=== PATIENT | female | born 1975 | race Caucasian/White ===

== ENCOUNTER → 2019-08-04 11:52 | Outpatient (CLI) | payer OTHER, SELFPAY ==
--- NOTE | 2019-08-04 12:29 | DI.MG.S_ITS ---
Patient Name: KATERINA FLANNERY date: 1975 Sex: F Attending Physician: ALISIA Indications: Date: 08/04/2019 12:18 At the request of: PRIYANKA CRUMP Procedure: MM screening mammo BI BILATERAL DIGITAL SCREENING MAMMOGRAM 3D/2D WITH CAD: 08/04/2019 CLINICAL: Routine screening. Comparison is made to exam dated: 02/12/2017 mammogram - [facility]. The tissue of both breasts is heterogeneously dense. This may lower the sensitivity of mammography. Current study was also evaluated with a Computer Aided Detection (CAD) system. No significant masses, calcifications, or other findings are seen in either breast. There has been no significant interval change. IMPRESSION: NEGATIVE There is no mammographic evidence of malignancy. A 1 year screening mammogram is recommended. This exam was interpreted at Station ID: [id number]. NOTE: For mammograms, a report in lay terms will be sent to the patient. Approximately 15% of breast malignancies will not be visualized mammographically. In the management of a palpable breast mass, a negative mammogram must not discourage biopsy of a clinically suspicious lesion. Electronically Signed By: Maverick vargas/penrad:08/04/2019 18:37:20 letter sent: Normal Exam ACR BI-RADS Category 1: Negative 3341F
== END ==
PROVIDERS: PCP Nurse Practitioner Family; Visit Provider Hospitalist
DX: Z12.31 Encounter for screening mammogram for malignant neoplasm of breast (principal)
CPT/HCPCS: 77063; 77067

== ENCOUNTER → 2019-08-20 12:46 | Outpatient (CLI) | payer OTHER, SELFPAY ==
--- NOTE | 2019-08-20 | DI.MRI.S_ITS ---
PROCEDURE: MR KNEE LT WO CON INDICATIONS: Unspecified internal derangement of left knee TECHNIQUE: Noncontrast sagittal PD fast spin echo and T2 fast spin echo with fat saturation, sagittal 3-D FLASH with fat saturation; coronal T1 spin echo and PD fast spin echo with fat saturation, and axial PD fast spin echo with fat saturation through the knee. COMPARISON: [facility], CR, XR KNEE ARTHRITIC SERIES LT, 08/08/2019, 8:35. FINDINGS: Image quality: Excellent. Menisci: Medial meniscus intact. Lateral meniscus intact. Cruciate ligaments: Anterior cruciate ligament appears intact. Posterior cruciate ligament appears intact. Medial structures: The medial collateral ligament appears intact. Semimembranosus tendon appears intact. Visualized portions of the pes anserinus tendons appear normal. No abnormal bursal fluid. Lateral structures: The lateral collateral ligament intact. Biceps femoris tendon appears intact. Popliteus tendon grossly unremarkable. Iliotibial band appears intact. Anterior structures: Quadriceps tendon intact. Medial and lateral patellofemoral ligaments intact. Mild proximal patellar tendinopathy. Hoffa's fat pad unremarkable. Bones and cartilage: No focal marrow contusion or discrete low signal fracture line. Within the medial compartment, there is intrasubstance signal change measured approximately 4 mm overall, and small near full-thickness cartilage defect involving the weightbearing medial femoral condyle. There is underlying subchondral cystic change and marrow edema. No definite in situ fragment. Within the lateral compartment, no focal articular cartilage defect Within the patellofemoral compartment, fissuring of the central trochlear cartilage. The patellar cartilage appears intact Joint space: No joint effusion. No Cruz's cyst. No specific evidence of intra-articular loose body. Multiloculated presumed ganglion cyst, seen at the origin of the lateral gastrocnemius muscle. IMPRESSION: Focal signal change with underlying subchondral marrow edema and T2 hyperintensity involving the weightbearing medial femoral cartilage suggestive of small osteochondral defect. Multiloculated ganglion cyst at the origin the lateral gastrocnemius. Dictated by: Jim Haynes M.D. on 08/22/2019 at 12:07 Approved by: Jim Haynes M.D. on 08/22/2019 at 12:18
== END ==
PROVIDERS: PCP Nurse Practitioner Family; Referring Provider Orthopaedic Surgery; Visit Provider Orthopaedic Surgery
DX: M23.92 Unspecified internal derangement of left knee (principal); M67.462 Ganglion, left knee
CPT/HCPCS: 73721

== ENCOUNTER → 2020-08-15 10:49 | Outpatient (CLI) | payer OTHER, SELFPAY ==
--- NOTE | 2020-08-15 | DI.MG.S_ITS ---
BILATERAL DIGITAL SCREENING MAMMOGRAM 3D/2D WITH CAD: 08/15/2020 CLINICAL: Routine screening. Comparison is made to exams dated: 08/04/2019 mammogram - [facility] and 02/12/2017 mammogram - [facility]. The tissue of both breasts is heterogeneously dense. This may lower the sensitivity of mammography. Current study was also evaluated with a Computer Aided Detection (CAD) system. No significant masses, calcifications, or other findings are seen in either breast. There has been no significant interval change. IMPRESSION: NEGATIVE There is no mammographic evidence of malignancy. A 1 year screening mammogram is recommended. This exam was interpreted at Station ID: [id number]. NOTE: For mammograms, a report in lay terms will be sent to the patient. Approximately 15% of breast malignancies will not be visualized mammographically. In the management of a palpable breast mass, a negative mammogram must not discourage biopsy of a clinically suspicious lesion. Electronically Signed By: Srikanth das/joe:08/15/2020 12:23:46 letter sent: Normal Exam ACR BI-RADS Category 1: Negative 3341F
== END ==
PROVIDERS: PCP Nurse Practitioner Family; Referring Provider Nurse Practitioner Family; Visit Provider Nurse Practitioner Family
DX: Z12.31 Encounter for screening mammogram for malignant neoplasm of breast (principal)
CPT/HCPCS: 77063; 77067

== ENCOUNTER → 2020-10-19 11:14 | Outpatient (CLI) | payer OTHER, SELFPAY ==
[2020-10-19] MEDS: COVID-19 VACC #1, MRNA(MOD) 100 MCG/0.5 ML VIAL IM (11:28)
== END ==
PROVIDERS: PCP Nurse Practitioner Family; Visit Provider Internal Medicine
DX: Z23 Encounter for immunization (principal)
CPT/HCPCS: 0011A; 91301

== ENCOUNTER 2022-07-17 11:17 | Emergency (ER) | payer OTHER, SELFPAY ==
--- NOTE | 2022-07-17 11:37 | DI.RAD.S_ITS ---
PROCEDURE: XR CHEST 1V INDICATIONS: chest pain TECHNIQUE: One view of the chest was acquired. COMPARISON: None. FINDINGS: Surgical changes and devices: None. Lungs and pleura: Lungs are clear. No pleural effusions or pneumothorax. Mediastinum: Mediastinal contours appear normal. Heart size is normal. Bones and chest wall: No suspicious bony lesions. Overlying soft tissues appear unremarkable. IMPRESSION: No acute process. Dictated by: Kuldip Graff M.D. on 07/17/2022 at 11:48 Approved by: Kuldip Graff M.D. on 07/17/2022 at 11:48
[2022-07-17 11:40] VITALS: BP 124/68; PULSE 81; RESP 30; TEMP 36.7; O2SAT 98; BMI 25.4
[2022-07-17 12:08] LABS: Add Manual Diff / Slide Review NO; Basophils Absolute Auto 100 /uL (0-100); Basophils Percent Auto 0.7 % (0-2); Eosinophils Absolute Auto 200 /uL (0-450); Hematocrit 36.3 % (36-46); Lymphocytes Absolute Auto 1500 /uL (1100-4500); Lymphocytes Percent Auto 18.8 % (25-40); Mean Corpuscular HGB Conc 33.1 % (30-36); Mean Corpuscular Hemoglobin 30.9 PG (26-34); Mean Corpuscular Volume 93.2 fL (80-100); Monocytes Absolute Auto 400 /uL (0-900); Monocytes Percent Auto 4.9 % (3-14); Neutrophils Absolute Auto 5700 /uL (1500-7000); Neutrophils Percent Auto 73.6 % (50-75); Platelet Count 249 X10^3/uL (150-400); Red Blood Cell Count 3.89 X10^6/uL (4.0-5.2); Red Cell Distribution Width 13.3 % (11.6-14.8); White Blood Cell Count 7.8 X10^3/uL (4.5-11.0)
[2022-07-17 12:15] LABS: INR 1.2 (0.9-1.3); Prothrombin Time 13.5 SECONDS (10.1-12.7)
[2022-07-17 12:21] LABS: Alanine Aminotransferase 16 IU/L (<35); Alkaline Phosphatase 48 U/L (38-126); Aspartate Aminotransferase 24 IU/L (14-36); BUN Creatinine Ratio 20.7 (6-22); Bilirubin Total 0.6 mg/dL (0.2-1.3); Blood Urea Nitrogen 12 mg/dL (7-17); Calcium 10.2 mg/dL (8.4-10.2); Carbon Dioxide 25 mmol/L (22-32); Chloride 106 mmol/L (98-107); Creatine Kinase 52 U/L (30-135); Estimated Glomerular Filt Rate > 60 mL/min (>60); Glucose 94 mg/dL (70-100); HEMOLYSIS < 15 (0-50); Lipase 107 U/L (23-300); Magnesium 1.7 mg/dL (1.6-2.3); Sodium 140 mmol/L (137-145)
[2022-07-17 12:24] LABS: PTT Partial Thromboplastin Tim 33 SECONDS (26-36)
[2022-07-17 12:32] LABS: Troponin I < 0.012 ng/mL (0.01-0.034)
--- NOTE | 2022-07-17 12:35 | ED.CHESTPAIN ---
HPI - Chest Pain <Bryanna Tee, [facility] - Last Filed: 07/17/22 15:40> General Chief Complaint: Chest Pain Stated Complaint: chest pain Time Seen by Provider: 07/17/22 12:09 Source: patient Mode of arrival: EMS History of Present Illness HPI narrative: This is a 46-year-old female who presents to the emergency department via EMS with acute onset of what patient thought was heartburn under her left ribs at 09:00 this morning. She states it radiates to right upper quadrant and right shoulder, her substernal chest pressure and pain and is associated with shortness of breath. She denies nausea, states that it became heavy and she felt poorly at that time. She felt lightheaded, states she has history of asthma some anxiety and GERD, she took Prilosec and 09:00 o'clock, her symptoms somewhat improved but then she another way pain and similar symptoms. She feels short of breath. She endorses pelvic pain and pressure, denies any urinary complaint, denies any flank pain Related Data Home Medications Medication Instructions Recorded Confirmed fluticasone propionate 50 1 spray intranasal DAILY 11/16/19 05/28/21 mcg/actuation nasal spray,suspension (Flonase Allergy Relief) Previous Rx's Medication Instructions Recorded albuterol sulfate 90 mcg/actuation 2 puff inhalation Q6H PRN 05/28/21 aerosol inhaler shortness of breath or wheezing #18 grams Advair Diskus 250 mcg-50 mcg/dose 1 inh inhalation DAILY #14 ea 05/29/21 powder for inhalation (fluticasone propion-salmeterol) cephalexin 500 mg capsule 500 mg PO TID 5 days #15 caps 07/17/22 hydrocodone 5 mg-acetaminophen 325 1 tab PO Q8H PRN pain #10 tabs 07/17/22 mg tablet metronidazole 0.75 % topical gel 1 applic topical BEDTIME #45 grams 07/17/22 metronidazole 500 mg tablet 500 mg PO BID 7 days #14 tabs 07/17/22 ondansetron 4 mg disintegrating 4 mg PO Q8H PRN nausea and 07/17/22 tablet vomiting #10 tabs polyethylene glycol 3350 17 17 g PO DAILY PRN constipation 07/17/22 gram/dose oral powder (Miralax) #238 grams Allergies Allergy/AdvReac Type Severity Reaction Status Date / Time No Known Drug Allergies Allergy Verified 07/17/22 11:47 Review of Systems <ROSSY Barry - Last Filed: 07/17/22 15:40> Review of Systems ROS Unobtainable: All systems reviewed & are unremarkable except as noted in HPI and below Patient History <ROSSY Barry - Last Filed: 07/17/22 15:40> Medical History Allergies (~1979) Encounter for wellness examination History of COVID-19 (01/2021) Surgical History H/O section Family History Father Coronary artery disease involving coronary bypass graft with angina pectoris with documented spasm Grandfather Heart disease Grandmother Heart disease Social History marital status: pets and animals: Yes education level: college occupational status: unemployed bisi/yarsanism: Confucianist seatbelt use: always helmet use: Yes water heater temp set < 120 deg: Yes working smoke detector in home: Yes fire extinguisher in home: Yes carbon monox detector in home: Yes firearms in home: Yes firearms unloaded and locked: Yes do you feel safe at home: Yes Smoking Status: Never smoker second hand exposure: No alcohol intake: current substance use type: does not use during the past year weight has: other well-balanced diet: daily or most days daily servings fruits/ve or more times/day caffeine: Yes (1-2 DRINKS PER DAY, RARE ON SODA) eating out: 1-3 times/week Type(s) of exercise: walking and swimming frequency: 3-4 times per week duration: 30-45 minutes/day additional social history: Beach body. No to disabilities. Smoking Status: Never smoker alcohol intake frequency: holidays/special occasions only Substance Use Type: does not use Exam <ROSSY Barry - Last Filed: 07/17/22 15:40> Narrative Exam Narrative: Reviewed vitals signs and nursing notes. General: cooperative, comfortable, in no acute distress, well groomed HEENT: symmetrical facial expressions, moist mucous membranes Cardiovascular: Tachycardic rate and regular rhythm, no peripheral edema, warm extremities Respiratory: normal effort, tachypneic, clear breath sounds throughout without wheezing, without stridor, or abnormal breath sounds. No retractions or tachypnea. GI: abdomen soft, tender to palpation to the right upper quadrant, nondistended, without masses, rebound tenderness or exquisite tenderness with exam. MSK: moves all extremities, neurovascularly intact, no weakness, normal tone Skin: brisk capillary refill, without pallor or erythema Neuro: normal speech and cognition, A&O x3, ambulatory, clear speech Psych: mental status is grossly normal, congruent mood, normal affect, pleasant and cooperative Initial Vital Signs Initial Vital Signs: Vital Signs Temperature 98.1 F 07/17/22 11:40 Pulse Rate 81 07/17/22 11:40 Respiratory Rate 30 H 07/17/22 11:40 Blood Pressure 124/68 07/17/22 11:40 Pulse Oximetry 98 07/17/22 11:40 Oxygen Delivery Method 07/17/22 11:40 <Teresa Dias DO - Last Filed: 07/21/22 07:19> Initial Vital Signs Initial Vital Signs: Vital Signs Temperature 98.1 F 07/17/22 11:40 Pulse Rate 81 07/17/22 11:40 Respiratory Rate 30 H 07/17/22 11:40 Blood Pressure 124/68 07/17/22 11:40 Pulse Oximetry 98 07/17/22 11:40 Oxygen Delivery Method 07/17/22 11:40 Scores <ROSSY Barry - Last Filed: 07/17/22 15:40> HEART Score Heart Score history: Slightly Suspicious Heart Score EKG: Normal Heart Score Age: < 45 years old Heart Score risk factors: No known risk factors Heart Score troponin: < or = to normal limit Heart Score Total: 0 PERC Score Age greater than or equal to 50 years: No Heart rate greater than or equal to 100 bpm: Yes Room Air O2 Sat less than 95%: No Unilateral leg swelling: No Recent trauma or surgery: No Hemoptysis: No Prior PE or DVT: No Hormone Use: No Total PERC Score: 1 <Teresa Dias DO - Last Filed: 07/21/22 07:19> HEART Score Heart Score Total: 0 PERC Score Total PERC Score: 1 Course <ROSSY Barry - Last Filed: 07/17/22 15:40> Orders Ordered: Discontinued Medications Cephalexin HCl (Cephalexin 250 Mg Capsule) 500 mg PO NOW ONE Stop: 07/17/22 14:53 Last Admin: 07/17/22 15:12 Dose: 500 mg Documented By: BRIAN Al Hydrox/Mg Hydrox/Simethicone 20 ml/ Lidocaine HCl 15 ml 0 ml PO NOW ONE Stop: 07/17/22 13:40 Last Admin: 07/17/22 14:55 Dose: 35 ml Documented By: BRIAN Diazepam (Diazepam 5 Mg Tablet) 5 mg PO NOW ONE Stop: 07/17/22 12:32 Last Admin: 07/17/22 13:01 Dose: 5 mg Documented By: BRIAN Hydromorphone HCl (Hydromorphone 0.5 Mg Inj) 0.5 mg IV NOW ONE Stop: 07/17/22 14:13 Last Admin: 07/17/22 14:44 Dose: Not Given Documented By: CAIN Metronidazole (Metronidazole 500 Mg Tablet) 500 mg PO NOW ONE Stop: 07/17/22 14:45 Last Admin: 07/17/22 15:12 Dose: 500 mg Documented By: BRIAN Pantoprazole Sodium (Pantoprazole 40 Mg Vial) 40 mg IV NOW ONE Stop: 07/17/22 12:30 Last Admin: 07/17/22 13:02 Dose: 40 mg Documented By: BRIAN Vital Signs Vital signs: Vital Signs - 8 hr 07/17/22 11:40 07/17/22 14:32 07/17/22 15:23 Temperature 98.1 F Pulse Rate 81 70 69 Respiratory Rate 30 H 18 Blood Pressure 124/68 110/69 111/60 Pulse Oximetry 98 100 98 Oxygen Delivery Method Room Air Room Air Room Air <Teresa Dias DO - Last Filed: 07/21/22 07:19> Orders Ordered: Discontinued Medications Cephalexin HCl (Cephalexin 250 Mg Capsule) 500 mg PO NOW ONE Stop: 07/17/22 14:53 Last Admin: 07/17/22 15:12 Dose: 500 mg Documented By: BRIAN Al Hydrox/Mg Hydrox/Simethicone 20 ml/ Lidocaine HCl 15 ml 0 ml PO NOW ONE Stop: 07/17/22 13:40 Last Admin: 07/17/22 14:55 Dose: 35 ml Documented By: BRIAN Diazepam (Diazepam 5 Mg Tablet) 5 mg PO NOW ONE Stop: 07/17/22 12:32 Last Admin: 07/17/22 13:01 Dose: 5 mg Documented By: BRIAN Hydromorphone HCl (Hydromorphone 0.5 Mg Inj) 0.5 mg IV NOW ONE Stop: 07/17/22 14:13 Last Admin: 07/17/22 14:44 Dose: Not Given Documented By: CAIN Metronidazole (Metronidazole 500 Mg Tablet) 500 mg PO NOW ONE Stop: 07/17/22 14:45 Last Admin: 07/17/22 15:12 Dose: 500 mg Documented By: BRIAN Pantoprazole Sodium (Pantoprazole 40 Mg Vial) 40 mg IV NOW ONE Stop: 07/17/22 12:30 Last Admin: 07/17/22 13:02 Dose: 40 mg Documented By: BRIAN Vital Signs Vital signs: Vital Signs - 8 hr 07/17/22 11:40 07/17/22 14:32 07/17/22 15:23 Temperature 98.1 F Pulse Rate 81 70 69 Respiratory Rate 30 H 18 Blood Pressure 124/68 110/69 111/60 Pulse Oximetry 98 100 98 Oxygen Delivery Method Room Air Room Air Room Air MDM - Chest Pain <ROSSY Barry - Last Filed: 07/17/22 15:40> Lab Data Result diagrams: 07/17/22 11:50 07/17/22 11:50 Labs: Lab Results 07/17/22 07/17/22 07/17/22 Range/Units 11:50 11:50 11:50 WBC 7.8 (4.5-11.0) X10^3/uL RBC 3.89 L (4.0-5.2) X10^6/uL Hgb 12.0 (12.0-16.0) g/dL Hct 36.3 (36-46) % MCV 93.2 (80-100) fL MCH 30.9 (26-34) PG MCHC 33.1 (30-36) % RDW 13.3 (11.6-14.8) % Plt Count 249 (150-400) X10^3/uL Neut % (Auto) 73.6 (50-75) % Lymph % (Auto) 18.8 L (25-40) % Edmunds % (Auto) 4.9 (3-14) % Eos % (Auto) 2.0 (2-4) % Baso % (Auto) 0.7 (0-2) % Neut # (Auto) 5700 (8835-7728) /uL Lymph # (Auto) 1500 (2605-9805) /uL Edmunds # (Auto) 400 (0-900) /uL Eos # (Auto) 200 (0-450) /uL Baso # (Auto) 100 (0-100) /uL PT 13.5 H (10.1-12.7) SECONDS INR 1.2 (0.9-1.3) APTT 33 (26-36) SECONDS D-Dimer (<500) ng/ml Sodium 140 (137-145) mmol/L Potassium 4.0 (3.4-5.1) mmol/L Chloride 106 (98-107) mmol/L Carbon Dioxide 25 (22-32) mmol/L BUN 12 (7-17) mg/dL Creatinine 0.58 (0.52-1.04) mg/dL Estimated GFR > 60 (>60) mL/min BUN/Creatinine Ratio 20.7 (6-22) Glucose 94 (70-100) mg/dL Calcium 10.2 (8.4-10.2) mg/dL Magnesium 1.7 (1.6-2.3) mg/dL Total Bilirubin 0.6 (0.2-1.3) mg/dL AST 24 (14-36) IU/L ALT 16 (<35) IU/L Alkaline Phosphatase 48 (38-126) U/L Total Creatine Kinase 52 (30-135) U/L CK-MB (CK-2) TNP CK-MB (CK-2) Rel Index TNP Troponin I < 0.012 (0.01-0.034) ng/mL NT-Pro-B Natriuret Pep (<125) pg/mL Total Protein 8.0 (6.3-8.2) g/dL Albumin 4.4 (3.5-5.0) g/dL Globulin 3.6 (1.7-4.1) g/dL Albumin/Globulin Ratio 1.2 (1.0-2.8) Lipase 107 (23-300) U/L Urine Color Urine Appearance Urine pH (4.5-8.0) Ur Specific [place] (1.000-1.035) Urine Protein (Negative) Urine Glucose (UA) (Negative) g/dL Urine Ketones (NEGATIVE) Urine Occult Blood (Negative) Urine Nitrate (Negative) Urine Bilirubin (NEGATIVE) Urine Urobilinogen (0.2) E.U./dL Ur Leukocyte Esterase (NEGATIVE) Urine RBC (0-5/HPF) Urine WBC (0-5/HPF) Ur Squamous Epith Cells (0-5/HPF) Urine Bacteria (None) Ur Culture Indicated? Urine Test (Negative) SARS-CoV-2 (PCR) (Negative) Influenza A (RT-PCR) (NEGATIVE) Influenza B (RT-PCR) (NEGATIVE) RSV (PCR) (Negative) 07/17/22 07/17/22 07/17/22 Range/Units 11:50 12:00 12:00 WBC (4.5-11.0) X10^3/uL RBC (4.0-5.2) X10^6/uL Hgb (12.0-16.0) g/dL Hct (36-46) % MCV (80-100) fL MCH (26-34) PG MCHC (30-36) % RDW (11.6-14.8) % Plt Count (150-400) X10^3/uL Neut % (Auto) (50-75) % Lymph % (Auto) (25-40) % Edmunds % (Auto) (3-14) % Eos % (Auto) (2-4) % Baso % (Auto) (0-2) % Neut # (Auto) (2504-0389) /uL Lymph # (Auto) (2595-4201) /uL Edmunds # (Auto) (0-900) /uL Eos # (Auto) (0-450) /uL Baso # (Auto) (0-100) /uL PT (10.1-12.7) SECONDS INR (0.9-1.3) APTT (26-36) SECONDS D-Dimer < 215 (<500) ng/ml Sodium (137-145) mmol/L Potassium (3.4-5.1) mmol/L Chloride (98-107) mmol/L Carbon Dioxide (22-32) mmol/L BUN (7-17) mg/dL Creatinine (0.52-1.04) mg/dL Estimated GFR (>60) mL/min BUN/Creatinine Ratio (6-22) Glucose (70-100) mg/dL Calcium (8.4-10.2) mg/dL Magnesium (1.6-2.3) mg/dL Total Bilirubin (0.2-1.3) mg/dL AST (14-36) IU/L ALT (<35) IU/L Alkaline Phosphatase (38-126) U/L Total Creatine Kinase (30-135) U/L CK-MB (CK-2) CK-MB (CK-2) Rel Index Troponin I (0.01-0.034) ng/mL NT-Pro-B Natriuret Pep (<125) pg/mL Total Protein (6.3-8.2) g/dL Albumin (3.5-5.0) g/dL Globulin (1.7-4.1) g/dL Albumin/Globulin Ratio (1.0-2.8) Lipase (23-300) U/L Urine Color Yellow Urine Appearance Clear Urine pH 7.0 (4.5-8.0) Ur Specific [place] <=1.005 (1.000-1.035) Urine Protein 2+ H (Negative) Urine Glucose (UA) Negative (Negative) g/dL Urine Ketones Negative (NEGATIVE) Urine Occult Blood 3+ H (Negative) Urine Nitrate Negative (Negative) Urine Bilirubin Negative (NEGATIVE) Urine Urobilinogen 0.2 (0.2) E.U./dL Ur Leukocyte Esterase Negative (NEGATIVE) Urine RBC 5-10/hpf H (0-5/HPF) Urine WBC 0-1/hpf (0-5/HPF) Ur Squamous Epith Cells >30 /hpf H (0-5/HPF) Urine Bacteria Many (>30) H (None) Ur Culture Indicated? Specimen cultured Urine Test Negative (Negative) SARS-CoV-2 (PCR) (Negative) Influenza A (RT-PCR) (NEGATIVE) Influenza B (RT-PCR) (NEGATIVE) RSV (PCR) (Negative) 07/17/22 07/17/22 Range/Units 13:05 13:57 WBC (4.5-11.0) X10^3/uL RBC (4.0-5.2) X10^6/uL Hgb (12.0-16.0) g/dL Hct (36-46) % MCV (80-100) fL MCH (26-34) PG MCHC (30-36) % RDW (11.6-14.8) % Plt Count (150-400) X10^3/uL Neut % (Auto) (50-75) % Lymph % (Auto) (25-40) % Edmunds % (Auto) (3-14) % Eos % (Auto) (2-4) % Baso % (Auto) (0-2) % Neut # (Auto) (8053-6158) /uL Lymph # (Auto) (2615-6326) /uL Edmunds # (Auto) (0-900) /uL Eos # (Auto) (0-450) /uL Baso # (Auto) (0-100) /uL PT (10.1-12.7) SECONDS INR (0.9-1.3) APTT (26-36) SECONDS D-Dimer (<500) ng/ml Sodium (137-145) mmol/L Potassium (3.4-5.1) mmol/L Chloride (98-107) mmol/L Carbon Dioxide (22-32) mmol/L BUN (7-17) mg/dL Creatinine (0.52-1.04) mg/dL Estimated GFR (>60) mL/min BUN/Creatinine Ratio (6-22) Glucose (70-100) mg/dL Calcium (8.4-10.2) mg/dL Magnesium (1.6-2.3) mg/dL Total Bilirubin (0.2-1.3) mg/dL AST (14-36) IU/L ALT (<35) IU/L Alkaline Phosphatase (38-126) U/L Total Creatine Kinase (30-135) U/L CK-MB (CK-2) CK-MB (CK-2) Rel Index Troponin I < 0.012 (0.01-0.034) ng/mL NT-Pro-B Natriuret Pep 46 (<125) pg/mL Total Protein (6.3-8.2) g/dL Albumin (3.5-5.0) g/dL Globulin (1.7-4.1) g/dL Albumin/Globulin Ratio (1.0-2.8) Lipase (23-300) U/L Urine Color Urine Appearance Urine pH (4.5-8.0) Ur Specific [place] (1.000-1.035) Urine Protein (Negative) Urine Glucose (UA) (Negative) g/dL Urine Ketones (NEGATIVE) Urine Occult Blood (Negative) Urine Nitrate (Negative) Urine Bilirubin (NEGATIVE) Urine Urobilinogen (0.2) E.U./dL Ur Leukocyte Esterase (NEGATIVE) Urine RBC (0-5/HPF) Urine WBC (0-5/HPF) Ur Squamous Epith Cells (0-5/HPF) Urine Bacteria (None) Ur Culture Indicated? Urine Test (Negative) SARS-CoV-2 (PCR) Negative (Negative) Influenza A (RT-PCR) Flu a negative (NEGATIVE) Influenza B (RT-PCR) Flu b negative (NEGATIVE) RSV (PCR) Negative (Negative) Imaging Data Chest x-ray: Radiologist's Impression: PROCEDURE:? XR CHEST 1V ? INDICATIONS:? chest pain ? TECHNIQUE:? One view of the chest was acquired.? ? COMPARISON:? None. ? FINDINGS:? ? Surgical changes and devices:? None.? ? Lungs and pleura:? Lungs are clear.? No pleural effusions or pneumothorax.? ? Mediastinum:? Mediastinal contours appear normal.? Heart size is normal.? ? Bones and chest wall:? No suspicious bony lesions.? Overlying soft tissues appear unremarkable.? ? IMPRESSION:? No acute process. ? ? Dictated by: Kuldip Graff M.D. on 07/17/2022 at 11:48 ? ? Approved by: Kuldip Graff M.D. on 07/17/2022 at 11:48 ? CT scan - abdomen/pelvis: Radiologist's Impression: PROCEDURE:? CT ABDOMEN PELVIS W CON ? INDICATIONS:? nephrolithiasis? chest pain/upper abd pain, tender rt flank ? TECHNIQUE:? After the administration of intravenous contrast, axial sections acquired from the lung bases to the pubic symphysis.? Coronal and sagittal reformats were performed.? For radiation dose reduction, the following was used:? automated exposure control, adjustment of mA and/or kV according to patient size.? ? COMPARISON:? None. ? FINDINGS:? Image quality:? Excellent.? ? Lung bases:? Unremarkable. Heart:? No significant findings. ? ABDOMEN: Liver:? Unremarkable.? ? Gallbladder:? Unremarkable.? ? Biliary ducts:? Unremarkable.? ? Pancreas:? Unremarkable.? ? Spleen:? Unremarkable.? ? Adrenal Glands:? Unremarkable.? ? Kidneys and Ureters:? Unremarkable.? ? ? Stomach and Bowel:? Stomach, small bowel loops, and colon are unremarkable.? Normal appendix. Peritoneum:? No abnormal intraperitoneal fluid.? No free air.? ? Ventral Wall: ? No hernias.? Abdominal Nodes:? No retroperitoneal or mesenteric adenopathy by size criteria.? Vessels:? Aorta and inferior vena cava are normal in size.? ? PELVIS: Pelvic Organs:? There is a septated cystic focus with calcifications involving the left ovary measuring roughly 38 mm diameter..? ? Bladder:? Unremarkable.? ? Pelvic Nodes: No enlarged lymph nodes.? Miscellaneous: No hernias are seen. ? ? ? Bones:? Unremarkable.? IMPRESSION:? 1. No acute process. 2. If there is clinical evidence for nephrolithiasis, further assessment with nonemergent outpatient follow-up CT KUB is recommended. 3. Normal appendix. For.? Calcified left ovarian lesion.? Further assessment with nonemergent outpatient follow-up pelvic ultrasound is recommended.? ? ? Dictated by: Kuldip Graff M.D. on 07/17/2022 at 14:26 ? ? Approved by: Kuldip Graff M.D. on 07/17/2022 at 14:28 ? ECG Data Interpretation: EKG independently reviewed by myself at [1200] reveals normal sinus rhythm at [66] bpm with regular axis and intervals. No STEMI, ST segment changes, arrhythmia, or acute ischemic changes. MDM Narrative Medical decision making narrative: CC: This is a 46-year-old female who presents to the emergency department via EMS with acute onset of what patient thought was heartburn under her left ribs at 09:00 this morning. She states it radiates to right upper quadrant and right shoulder, her substernal chest pressure and pain and is associated with shortness of breath. She denies nausea, states that it became heavy and she felt poorly at that time. She felt lightheaded, states she has history of asthma some anxiety and GERD, she took Prilosec and 09:00 o'clock, her symptoms somewhat improved but then she another way pain and similar symptoms. Differential diagnoses include, but are not limited to: Pulmonary embolus, ACS, heartburn/GERD, acute viral illness including COVID, UTI, cholecystitis, nephrolithiasis pelvic infection including PID or bacterial vaginosis, I have reviewed the patient's vital signs and nursing notes as well as prior records if available. Lab test results independently reviewed, pertinent findings: UA with RBCs over 30s squamous epithelial cells many bacteria this is likely contaminant however patient does have pelvic tenderness. Wet prep completed and results show wbc's in her vaginal secretions. My imaging interpretation: Chest x-ray without acute abnormality CT abdomen pelvis without acute process, normal appendix, it does show calcified left ovarian lesion, specifically a septated cystic foci with calcifications involving the left ovary measuring roughly 38 mm in diameter. Patient states that she has ovarian cyst in this location, this is common for her and she is not currently on her menses. Will treat her for bacterial vaginosis, and acute cystitis since there RBCs in her urine as well. Clinical Decision Rules/Scores evaluated: PERC score of 1 can not rule out, heart score of 0 Discussion of Management with other Health Professionals: Referred to Dr. De La Rosa for follow-up about the calcified left ovarian lesion Re-evaluations/Ongoing course of care: Met with the patient, she is in a hallway bed, received Zofran and 500 mL of normal saline, had another episode of shortness of breath, she appears mildly anxious, has tenderness over her epigastrium and substernal region with pressure, this comes on in waves, ordered pain medication, the rest of her IV fluid UA, and hoped her she was ambulatory to the bathroom. She did have pelvic pain with palpation as well. 1300 patient's UA is still pending, ordered D-dimer as it has not resulted, troponin came back at 0.012, all of her liver enzymes are without elevation, no electrolyte abnormalities, INR is normal and there is no leukocytosis, anemia, mild lymphopenia 1400 patient has upper abdomen pain and pressure, states it is just under her ribcage, ordered CT abdomen and pelvis to further evaluate patient's symptoms, her D-dimer came back without elevation so no CT PE scan not indicated. Patient is without diaphoresis, nausea, vomiting, or other symptom. 1500 CT abdomen is negative for acute process, shows calcified left ovarian lesion with left ovary measuring 38 mm in diameter, CT report states it has a septated cystic focus. Will treat for bacterial vaginosis and acute cystitis, shared decision making with the patient who agrees and understands to follow-up with Dr. De La Rosa, treated her with oral and intravaginal metronidazole, cephalexin for UTI x5 days, urine culture is pending, if no growth okay to discontinue cephalexin. No other pertinent findings on her lab work. Respiratory panel came back negative for all tested viruses. Patient's symptoms improved over duration of stay with above-stated therapies. Social considerations that may affect disposition: None Disposition: see below, along with detailed discharge instructions that have been reviewed with the patient as well as indications for ED re-evaluation and additional outpatient follow-up. Questions are addressed and there is agreement with the plan and for follow-up. Patient is appropriate for outpatient management. MIPS: This encounter doesn't have any diagnosis associated with MIPS criteria. I, Bryanna Tee [facility], personally performed the services described in the documentation, and it accurately records my words and actions. I collaborated with the ED attending physician for BRIGID level 2, 3, and some level 4s as appropriate. <Teresa Dias, DO - Last Filed: 07/21/22 07:19> Lab Data Labs: Lab Results 07/17/22 07/17/22 07/17/22 Range/Units 11:50 11:50 11:50 WBC 7.8 (4.5-11.0) X10^3/uL RBC 3.89 L (4.0-5.2) X10^6/uL Hgb 12.0 (12.0-16.0) g/dL Hct 36.3 (36-46) % MCV 93.2 (80-100) fL MCH 30.9 (26-34) PG MCHC 33.1 (30-36) % RDW 13.3 (11.6-14.8) % Plt Count 249 (150-400) X10^3/uL Neut % (Auto) 73.6 (50-75) % Lymph % (Auto) 18.8 L (25-40) % Edmunds % (Auto) 4.9 (3-14) % Eos % (Auto) 2.0 (2-4) % Baso % (Auto) 0.7 (0-2) % Neut # (Auto) 5700 (6778-3622) /uL Lymph # (Auto) 1500 (7052-8112) /uL Edmunds # (Auto) 400 (0-900) /uL Eos # (Auto) 200 (0-450) /uL Baso # (Auto) 100 (0-100) /uL PT 13.5 H (10.1-12.7) SECONDS INR 1.2 (0.9-1.3) APTT 33 (26-36) SECONDS D-Dimer (<500) ng/ml Sodium 140 (137-145) mmol/L Potassium 4.0 (3.4-5.1) mmol/L Chloride 106 (98-107) mmol/L Carbon Dioxide 25 (22-32) mmol/L BUN 12 (7-17) mg/dL Creatinine 0.58 (0.52-1.04) mg/dL Estimated GFR > 60 (>60) mL/min BUN/Creatinine Ratio 20.7 (6-22) Glucose 94 (70-100) mg/dL Calcium 10.2 (8.4-10.2) mg/dL Magnesium 1.7 (1.6-2.3) mg/dL Total Bilirubin 0.6 (0.2-1.3) mg/dL AST 24 (14-36) IU/L ALT 16 (<35) IU/L Alkaline Phosphatase 48 (38-126) U/L Total Creatine Kinase 52 (30-135) U/L CK-MB (CK-2) TNP CK-MB (CK-2) Rel Index TNP Troponin I < 0.012 (0.01-0.034) ng/mL NT-Pro-B Natriuret Pep (<125) pg/mL Total Protein 8.0 (6.3-8.2) g/dL Albumin 4.4 (3.5-5.0) g/dL Globulin 3.6 (1.7-4.1) g/dL Albumin/Globulin Ratio 1.2 (1.0-2.8) Lipase 107 (23-300) U/L Urine Color Urine Appearance Urine pH (4.5-8.0) Ur Specific [place] (1.000-1.035) Urine Protein (Negative) Urine Glucose (UA) (Negative) g/dL Urine Ketones (NEGATIVE) Urine Occult Blood (Negative) Urine Nitrate (Negative) Urine Bilirubin (NEGATIVE) Urine Urobilinogen (0.2) E.U./dL Ur Leukocyte Esterase (NEGATIVE) Urine RBC (0-5/HPF) Urine WBC (0-5/HPF) Ur Squamous Epith Cells (0-5/HPF) Urine Bacteria (None) Ur Culture Indicated? Urine Test (Negative) SARS-CoV-2 (PCR) (Negative) Influenza A (RT-PCR) (NEGATIVE) Influenza B (RT-PCR) (NEGATIVE) RSV (PCR) (Negative) 07/17/22 07/17/22 07/17/22 Range/Units 11:50 12:00 12:00 WBC (4.5-11.0) X10^3/uL RBC (4.0-5.2) X10^6/uL Hgb (12.0-16.0) g/dL Hct (36-46) % MCV (80-100) fL MCH (26-34) PG MCHC (30-36) % RDW (11.6-14.8) % Plt Count (150-400) X10^3/uL Neut % (Auto) (50-75) % Lymph % (Auto) (25-40) % [place]munds % (Auto) (3-14) % Eos % (Auto) (2-4) % Baso % (Auto) (0-2) % Neut # (Auto) (8305-8635) /uL Lymph # (Auto) (1991-4688) /uL [place]ds # (Auto) (0-900) /uL Eos # (Auto) (0-450) /uL Baso # (Auto) (0-100) /uL PT (10.1-12.7) SECONDS INR (0.9-1.3) APTT (26-36) SECONDS D-Dimer < 215 (<500) ng/ml Sodium (137-145) mmol/L Potassium (3.4-5.1) mmol/L Chloride (98-107) mmol/L Carbon Dioxide (22-32) mmol/L BUN (7-17) mg/dL Creatinine (0.52-1.04) mg/dL Estimated GFR (>60) mL/min BUN/Creatinine Ratio (6-22) Glucose (70-100) mg/dL Calcium (8.4-10.2) mg/dL Magnesium (1.6-2.3) mg/dL Total Bilirubin (0.2-1.3) mg/dL AST (14-36) IU/L ALT (<35) IU/L Alkaline Phosphatase (38-126) U/L Total Creatine Kinase (30-135) U/L CK-MB (CK-2) CK-MB (CK-2) Rel Index Troponin I (0.01-0.034) ng/mL NT-Pro-B Natriuret Pep (<125) pg/mL Total Protein (6.3-8.2) g/dL Albumin (3.5-5.0) g/dL Globulin (1.7-4.1) g/dL Albumin/Globulin Ratio (1.0-2.8) Lipase (23-300) U/L Urine Color Yellow Urine Appearance Clear Urine pH 7.0 (4.5-8.0) Ur Specific [place] <=1.005 (1.000-1.035) Urine Protein 2+ H (Negative) Urine Glucose (UA) Negative (Negative) g/dL Urine Ketones Negative (NEGATIVE) Urine Occult Blood 3+ H (Negative) Urine Nitrate Negative (Negative) Urine Bilirubin Negative (NEGATIVE) Urine Urobilinogen 0.2 (0.2) E.U./dL Ur Leukocyte Esterase Negative (NEGATIVE) Urine RBC 5-10/hpf H (0-5/HPF) Urine WBC 0-1/hpf (0-5/HPF) Ur Squamous Epith Cells >30 /hpf H (0-5/HPF) Urine Bacteria Many (>30) H (None) Ur Culture Indicated? Specimen cultured Urine Test Negative (Negative) SARS-CoV-2 (PCR) (Negative) Influenza A (RT-PCR) (NEGATIVE) Influenza B (RT-PCR) (NEGATIVE) RSV (PCR) (Negative) 07/17/22 07/17/22 Range/Units 13:05 13:57 WBC (4.5-11.0) X10^3/uL RBC (4.0-5.2) X10^6/uL Hgb (12.0-16.0) g/dL Hct (36-46) % MCV (80-100) fL MCH (26-34) PG MCHC (30-36) % RDW (11.6-14.8) % Plt Count (150-400) X10^3/uL Neut % (Auto) (50-75) % Lymph % (Auto) (25-40) % Edmunds % (Auto) (3-14) % Eos % (Auto) (2-4) % Baso % (Auto) (0-2) % Neut # (Auto) (8462-0352) /uL Lymph # (Auto) (3824-9092) /uL Edmunds # (Auto) (0-900) /uL Eos # (Auto) (0-450) /uL Baso # (Auto) (0-100) /uL PT (10.1-12.7) SECONDS INR (0.9-1.3) APTT (26-36) SECONDS D-Dimer (<500) ng/ml Sodium (137-145) mmol/L Potassium (3.4-5.1) mmol/L Chloride (98-107) mmol/L Carbon Dioxide (22-32) mmol/L BUN (7-17) mg/dL Creatinine (0.52-1.04) mg/dL Estimated GFR (>60) mL/min BUN/Creatinine Ratio (6-22) Glucose (70-100) mg/dL Calcium (8.4-10.2) mg/dL Magnesium (1.6-2.3) mg/dL Total Bilirubin (0.2-1.3) mg/dL AST (14-36) IU/L ALT (<35) IU/L Alkaline Phosphatase (38-126) U/L Total Creatine Kinase (30-135) U/L CK-MB (CK-2) CK-MB (CK-2) Rel Index Troponin I < 0.012 (0.01-0.034) ng/mL NT-Pro-B Natriuret Pep 46 (<125) pg/mL Total Protein (6.3-8.2) g/dL Albumin (3.5-5.0) g/dL Globulin (1.7-4.1) g/dL Albumin/Globulin Ratio (1.0-2.8) Lipase (23-300) U/L Urine Color Urine Appearance Urine pH (4.5-8.0) Ur Specific [place] (1.000-1.035) Urine Protein (Negative) Urine Glucose (UA) (Negative) g/dL Urine Ketones (NEGATIVE) Urine Occult Blood (Negative) Urine Nitrate (Negative) Urine Bilirubin (NEGATIVE) Urine Urobilinogen (0.2) E.U./dL Ur Leukocyte Esterase (NEGATIVE) Urine RBC (0-5/HPF) Urine WBC (0-5/HPF) Ur Squamous Epith Cells (0-5/HPF) Urine Bacteria (None) Ur Culture Indicated? Urine Test (Negative) SARS-CoV-2 (PCR) Negative (Negative) Influenza A (RT-PCR) Flu a negative (NEGATIVE) Influenza B (RT-PCR) Flu b negative (NEGATIVE) RSV (PCR) Negative (Negative) ECG Data Interpretation: EKG independently reviewed by myself at [1200] reveals normal sinus rhythm at [66] bpm with regular axis and intervals. No STEMI, ST segment changes, arrhythmia, or acute ischemic changes. Arun-normal sinus rhythm rate 66 NC interval 146 QRS [address] changes no T-wave inversions no Q-waves similar to previous EKG in 2013 Discharge Plan Departure Patient Disposition: Home Clinical Impression: Bacterial vaginosis, Calcification of ovary Cystitis, acute Qualifiers: Hematuria presence: with hematuria Qualified Code(s): N30.01 - Acute cystitis with hematuria Instructions: Bacterial Vaginosis, Acute Cystitis Activity Restrictions/Additional Instructions: *You have been diagnosed with no acute processes at we can evaluate well today. Vaginal secretions showed bacteria, we should treat that with metronidazole, the CT shows a calcified left ovarian lesion versus tissue, follow-up with Dr. De La Rosa for an ultrasound further evaluation of this. There is a number listed below to follow-up with a primary care provider. Your lab work overall is reassuring the respiratory panel is not back yet but I will call you if it test positive for 1 of those viruses. There was many bacteria and a small amount of blood, we should treat you for a bladder infection as well to be safe and and have you follow-up with Dr. De La Rosa. Please stay hydrated, thank you for coming in for evaluation, no other abnormalities on the chest x-ray or CT. *What to do: *Please continue to take your regular medications as directed. [ x] New medication prescriptions sent to your pharmacy: [facility] [place] [ ] New medication written as a paper prescription [ ] No new medications given *Please follow up with your primary care provider in 2-3 days, call for an appointment. Let them know you were seen in the Emergency Department and that we asked that you be seen for follow-up. We will electronically transmit a record of today's note if your PCP is in our system *If you do not have a primary care provider please contact [phone] to establish care with one of the [facility] primary care providers. *Return to Emergency Department if you should have any new, worsening, or concerning symptoms, such as [fever greater than 101F, chills, worsening pain, persistent vomiting or other bothersome symptoms]. Prescriptions: New cephalexin 500 mg capsule 500 mg PO TID 5 Days Qty: 15 0RF metronidazole 500 mg tablet 500 mg PO BID 7 Days Qty: 14 0RF metronidazole 0.75 % gel 1 applic topical BEDTIME Qty: 45 0RF ondansetron 4 mg tablet,disintegrating 4 mg PO Q8H PRN (Reason: nausea and vomiting) Qty: 10 0RF hydrocodone-acetaminophen 5-325 mg tablet 1 tab PO Q8H PRN (Reason: pain) Qty: 10 0RF polyethylene glycol 3350 [Miralax] 17 gram/dose powder 17 g PO DAILY PRN (Reason: constipation) Qty: 238 0RF No Action fluticasone propion-salmeterol [Advair Diskus] 250-50 mcg/dose blister with device 1 inh INHALATION DAILY Qty: 14 3RF albuterol sulfate 90 mcg/actuation HFA aerosol inhaler 2 puff INHALATION Q6H PRN (Reason: shortness of breath or wheezing) Qty: 18 5RF fluticasone propionate [Flonase Allergy Relief] 50 mcg/actuation spray,suspension 1 spray NASAL DAILY Referrals: Abad Johnson ARNP [Primary Care Provider] - Pako De La Rosa MD [Physician] - Stand Alone Forms: Patient Portal/API <Teresa Dias DO - Last Filed: 07/21/22 07:19> Cosign ED Attending Kimature Attestation: I was immediately available in the department for consultation. Documentation has been reviewed.
[2022-07-17] MEDS: diazePAM 5 MG TABLET PO (13:01)
[2022-07-17] MEDS: PANTOPRAZOLE 40 MG VIAL IV (13:02)
[2022-07-17 13:32] LABS: Appearance Urine UA CLEAR; Bilirubin Urine UA NEGATIVE (NEGATIVE); Color Urine UA YELLOW; Glucose Urine UA NEGATIVE (Negative); Ketones Urine UA NEGATIVE (NEGATIVE); Leukocyte Esterase Urine UA NEGATIVE (NEGATIVE); Nitrite Urine UA NEGATIVE (Negative); Occult Blood Urine UA 3+ (Negative); Protein Urine UA 2+ (Negative); Specific Gravity Urine UA <=1.005 (1.000-1.035); Urobilinogen Urine UA 0.2 E.U./dL (0.2)
[2022-07-17 13:37] LABS: D Dimer < 215 ng/ml (<500)
[2022-07-17 13:40] LABS: Pregnancy Test Urine Negative (Negative)
--- NOTE | 2022-07-17 13:46 | DI.CT.S_ITS ---
PROCEDURE: CT ABDOMEN PELVIS W CON INDICATIONS: nephrolithiasis? chest pain/upper abd pain, tender rt flank TECHNIQUE: After the administration of intravenous contrast, axial sections acquired from the lung bases to the pubic symphysis. Coronal and sagittal reformats were performed. For radiation dose reduction, the following was used: automated exposure control, adjustment of mA and/or kV according to patient size. COMPARISON: None. FINDINGS: Image quality: Excellent. Lung bases: Unremarkable. Heart: No significant findings. ABDOMEN: Liver: Unremarkable. Gallbladder: Unremarkable. Biliary ducts: Unremarkable. Pancreas: Unremarkable. Spleen: Unremarkable. Adrenal Glands: Unremarkable. Kidneys and Ureters: Unremarkable. Stomach and Bowel: Stomach, small bowel loops, and colon are unremarkable. Normal appendix. Peritoneum: No abnormal intraperitoneal fluid. No free air. Ventral Wall: No hernias. Abdominal Nodes: No retroperitoneal or mesenteric adenopathy by size criteria. Vessels: Aorta and inferior vena cava are normal in size. PELVIS: Pelvic Organs: There is a septated cystic focus with calcifications involving the left ovary measuring roughly 38 mm diameter.. Bladder: Unremarkable. Pelvic Nodes: No enlarged lymph nodes. Miscellaneous: No hernias are seen. Bones: Unremarkable. IMPRESSION: 1. No acute process. 2. If there is clinical evidence for nephrolithiasis, further assessment with nonemergent outpatient follow-up CT KUB is recommended. 3. Normal appendix. For. Calcified left ovarian lesion. Further assessment with nonemergent outpatient follow-up pelvic ultrasound is recommended. Dictated by: Kuldip Graff M.D. on 07/17/2022 at 14:26 Approved by: Kuldip Graff M.D. on 07/17/2022 at 14:28
[2022-07-17 13:55] LABS: Bacteria Urine Many (>30); Culture Indicated Urine Specimen Cultured; RBC Urine 5-10/HPF (0-5/HPF); Squamous Epithelial Cell Urine >30 /HPF (0-5/HPF); WBC Urine 0-1/HPF (0-5/HPF)
[2022-07-17 14:21] LABS: Influenza A - CEPHEID Flu A NEGATIVE (NEGATIVE); Influenza B - CEPHEID Flu B NEGATIVE (NEGATIVE); Respiratory Syncytial Virus Negative (Negative)
[2022-07-17 14:32] VITALS: BP 110/69; PULSE 70; O2SAT 100
[2022-07-17 14:34] LABS: NT-proBNP (BNP-Adult 18+) 46 pg/mL (<125); Troponin I < 0.012 ng/mL (0.01-0.034)
[2022-07-17] MEDS: MAG HYDROX/ALUMINUM/SIMETH SUS 20 ML, LIDOCAINE VISCOUS 2% 15 ML PO (14:55)
[2022-07-17] MEDS: cephALEXin 250 MG CAPSULE 500 MG PO (15:12)
[2022-07-17] MEDS: metroNIDAZOLE 500 MG TABLET PO (15:12)
[2022-07-17 15:23] VITALS: BP 111/60; PULSE 69; RESP 18; O2SAT 98
[2022-07-17 15:29] LABS: COVID-19 CEPHEID 4-PLEX PCR Negative (Negative)
[2022-07-18 17:08] LABS: Albumin 4.4 g/dL (3.5-5.0); Albumin Globulin Ratio 1.2 (1.0-2.8); Globulin 3.6 g/dL (1.7-4.1)
== END 2022-07-17 15:23 | disposition home or self-care (01) ==
PROVIDERS: Emergency Medicine; Emergency Provider Nurse Practitioner Critical Care Medicine; PCP Nurse Practitioner Family
DX: N30.01 Acute cystitis with hematuria (principal); N76.0 Acute vaginitis; R07.9 Chest pain, unspecified; N83.8 Other noninflammatory disorders of ovary, fallopian tube and broad ligament; Z79.899 Other long term (current) drug therapy; Z20.822 Contact with and (suspected) exposure to COVID-19
CPT/HCPCS: 0241U; 36415; 71045; 74177; 80053; 81001; 81025; 82550; 83690; 83735; 83880; 84484; 85025; 85379; 85610; 85730; 87086; 87210; 93005; 96374; 99284; C9113; Q9967

== ENCOUNTER 2022-07-19 10:55 | Emergency (ER) | payer OTHER, SELFPAY ==
[2022-07-19 11:12] VITALS: BP 115/85; PULSE 78; RESP 18; TEMP 36.6; O2SAT 99; BMI 24.7
--- NOTE | 2022-07-19 11:27 | DI.US.S_ITS ---
PROCEDURE: US PELVIC COMPLETE INDICATIONS: FOLLOW UP CT 2 DAYS AGO-WORSENING LLQ PAIN RADIATING TO BACK. CURRENT UTI. NEW ONSET (TODAY) URINATION WITH BLOOD. TECHNIQUE: Real-time scanning was performed of the pelvic organs, with image documentation. Additional endovaginal scanning was necessary due to incomplete visualization of the adnexal and endometrial structures by transabdominal scanning. COMPARISON: [facility], CT, CT ABDOMEN PELVIS W CON, 07/17/2022, 14:19. FINDINGS: Uterus: Uterus is anteverted and normal in size at 9.6 x 6.3 x 5.6 cm. The myometrium is mildly heterogeneous. Two anterior myometrial areas of hypoechogenicity measuring 0.7 cm each.. The endometrium measures 1.3 mm combined thickness. Normal uterine vascularity. Ovaries: The right ovary measures 3.2 x 2.0 x 2.4 cm, with a calculated ovarian volume of 8.0 cc. The left ovary measures 4.4 x 2.5 x 2.2 cm, with a calculated ovarian volume of 12.6 cc. The ovaries have a normal sonographic appearance. The left ovary was only seen by transabdominal imaging given its superior location and follicular echotexture is less well seen. There is appropriate blood flow in each ovary. No adnexal masses are seen. Other: No pathologic free abdominal or pelvic fluid. Occurs three majus obtained of the urinary bladder are grossly normal. IMPRESSION: 1. Mildly heterogeneous uterus, likely with small fibroids. 2. Normal ovaries bilaterally with appropriate ovarian vascular flow. We strive to produce accurate, complete, and clear reports of imaging services. To assist us in improving patient care, this report was composed using standard report templates and voice recognition software. Therefore, it may contain abnormal punctuation, insertions and/or omissions. Occasional wrong-word or sound-alike substitutions may occur. Though we review the report and make efforts to correct it, we do recommend that the report be read carefully in proper context to recognize any text inaccuracies. Dictated by: Dedra Cantrell M.D. on 07/19/2022 at 13:20 Approved by: Dedra Cantrell M.D. on 07/19/2022 at 13:24
--- NOTE | 2022-07-19 12:20 | ED.FEMALEGU ---
HPI - Female Genitourinary <Giana Giordano PA-C - Last Filed: 07/19/22 15:49> General Chief complaint: Urogenital-Female Stated complaint: Thinks Left Cyst burst Time Seen by Provider: 07/19/22 11:06 Source: patient Mode of arrival: Ambulatory History of Present Illness HPI Narrative: This is a 46-year-old female with history of asthma, GERD who was seen in the emergency department yesterday for left-sided abdominal pain and found to have a ovarian cyst with septations and calcification on CT scan, she was also found to have BV and a UTI and was started on antibiotics for these. Patient returns today to the emergency department stating that her pain has persisted and become somewhat worse she said she had an episode of pain this morning where she was doubled over and her low back felt like it was on fire. She states she also had an episode when she went to the bathroom and Peed where she saw some bright red blood but notes that she only had a tiny amount of light pink blood at her next urination. She was unsure if this is from her urine or from her vagina. She states that when she had the severe episode of pain she felt like she was having chills at the same time. She says she does have regular. Still and up until her symptoms started has not had any problems with abdominal pain or abnormal bleeding. She states that her pain has improved significantly although it is continuing at a low steady state. She does feel it is sometimes worse with movement and walking and better with rest. She denies any other complaints or concerns. Related Data Home Medications Medication Instructions Recorded Confirmed fluticasone propionate 50 1 spray intranasal DAILY 11/16/19 05/28/21 mcg/actuation nasal spray,suspension (Flonase Allergy Relief) Previous Rx's Medication Instructions Recorded albuterol sulfate 90 mcg/actuation 2 puff inhalation Q6H PRN 05/28/21 aerosol inhaler shortness of breath or wheezing #18 grams Advair Diskus 250 mcg-50 mcg/dose 1 inh inhalation DAILY #14 ea 05/29/21 powder for inhalation (fluticasone propion-salmeterol) cephalexin 500 mg capsule 500 mg PO TID 5 days #15 caps 07/17/22 hydrocodone 5 mg-acetaminophen 325 1 tab PO Q8H PRN pain #10 tabs 07/17/22 mg tablet metronidazole 0.75 % topical gel 1 applic topical BEDTIME #45 grams 07/17/22 metronidazole 500 mg tablet 500 mg PO BID 7 days #14 tabs 07/17/22 ondansetron 4 mg disintegrating 4 mg PO Q8H PRN nausea and 07/17/22 tablet vomiting #10 tabs polyethylene glycol 3350 17 17 g PO DAILY PRN constipation 07/17/22 gram/dose oral powder (Miralax) #238 grams Allergies Allergy/AdvReac Type Severity Reaction Status Date / Time No Known Drug Allergies Allergy Verified 07/17/22 11:47 Review of Systems <Giana Giordano PA-C - Last Filed: 07/19/22 15:49> Review of Systems Narrative: Unremarkable except as noted in the HPI Patient History <Giana Giordano PA-C - Last Filed: 07/19/22 15:49> Medical History Allergies (~1979) Encounter for wellness examination History of COVID-19 (01/2021) Surgical History H/O section Family History Father Coronary artery disease involving coronary bypass graft with angina pectoris with documented spasm Grandfather Heart disease Grandmother Heart disease alcohol intake frequency: holidays/special occasions only Substance Use Type: does not use Exam <Ginaa Giordano PA-C - Last Filed: 07/19/22 15:49> Initial Vital Signs Initial Vital Signs: Vital Signs Temperature 98 F 07/19/22 11:12 Pulse Rate 78 07/19/22 11:12 Respiratory Rate 18 07/19/22 11:12 Blood Pressure 115/85 07/19/22 11:12 Pulse Oximetry 99 07/19/22 11:12 Oxygen Delivery Method 07/19/22 11:12 HENMT Head: normal to inspection Face and sinus: normal facial exam Eyes General: Yes appearance normal, both eyes and all related structures Pupils: PERRL Resp Effort & Inspection: normal respiratory effort Auscultation: clear to auscultation bilaterally Cardio Rate: regular rate Rhythm: regular rhythm GI Inspection: normal to inspection Palpation: soft and tender (LLQ, otherwise nontender) Skin General: no rashes or lesions noted Neuro General: patient alert, patient awake and patient oriented x3 Extrem General: normal to inspection <Radha Cuba DO - Last Filed: 07/20/22 08:19> Initial Vital Signs Initial Vital Signs: Vital Signs Temperature 98 F 07/19/22 11:12 Pulse Rate 78 07/19/22 11:12 Respiratory Rate 18 07/19/22 11:12 Blood Pressure 115/85 07/19/22 11:12 Pulse Oximetry 99 07/19/22 11:12 Oxygen Delivery Method 07/19/22 11:12 Course <Giana Giordano PA-C - Last Filed: 07/19/22 15:49> Orders Ordered: Discontinued Medications Sodium Chloride (Normal Saline 0.9%) 1,000 mls @ 1,000 mls/hr IV BOLUS ONE Stop: 07/19/22 13:18 Last Infusion: 07/19/22 13:22 Dose: 0 mls/hr Documented By: Admin: 07/19/22 12:28 Dose: 1,000 mls/hr Documented By: LYNDSAY Reevaluation(s) Reevaluation #1: Rechecked the patient who is currently getting her ultrasound. She has not had any increase in pain, or any ongoing bleeding and is still feeling okay at present. Time: 13:40 Reevaluation #2: Rechecked the patient and discussed the ultrasound results with her. She is feeling all right and is comfortable with going home and having a follow-up appointment as planned on Thursday. We discussed potential etiologies of her pain and symptoms. And options for symptomatic pain control at home. Time: 14:45 Vital Signs Vital signs: Vital Signs - 8 hr 07/19/22 11:12 07/19/22 15:16 Temperature 98 F Pulse Rate 78 67 Respiratory Rate 18 18 Blood Pressure 115/85 116/64 Pulse Oximetry 99 99 Oxygen Delivery Method Room Air Room Air <Radha Cuba DO - Last Filed: 07/20/22 08:19> Orders Ordered: Discontinued Medications Sodium Chloride (Normal Saline 0.9%) 1,000 mls @ 1,000 mls/hr IV BOLUS ONE Stop: 07/19/22 13:18 Last Infusion: 07/19/22 13:22 Dose: 0 mls/hr Documented By: Admin: 07/19/22 12:28 Dose: 1,000 mls/hr Documented By: LYNDSAY Vital Signs Vital signs: Vital Signs - 8 hr 07/19/22 11:12 07/19/22 15:16 Temperature 98 F Pulse Rate 78 67 Respiratory Rate 18 18 Blood Pressure 115/85 116/64 Pulse Oximetry 99 99 Oxygen Delivery Method Room Air Room Air MDM - Female Genitourinary <Giana Giordano PA-C - Last Filed: 07/19/22 15:49> Differential Diagnosis Differential diagnosis: Likely urinary tract infection, bacterial vaginosis, ruptured ovarian cyst and other (Mass effect, ovarian cyst, fibroids) Medical Records Medical records narrative: I was the provider caring for this patient during her emergency department stay. I did consult attending physician in the emergency department Dr. Cuba regarding this patient's care and disposition. Lab Data Labs: Point of Care Testing Test Results Negative Urine Dip Bedside Urine Glucose Negative Bedside Urine Bilirubin - Negative Bedside Urine Ketone - Negative Urine Specific Monarch 1.010 Bedside Urine Occult Blood ++ Bedside Urine pH 6.5 Bedside Urine Protein - Negative Bedside Urine Urobilinogen - Negative Bedside Urine Nitrite - Negative Bedside Urine Leukocytes - Negative Esterase Imaging Data US - BANK OPERATIONS OFFICER: Radiologist's Impression: [place] [address] Ultrasound Report Signed Patient: Gauri Kline MR#: [id number] : 1975 Acct:[id number] Age/Sex: 46 / F Date of Service: 07/19/22 Loc: ED Accession Number: [id number] ?? Procedure: US pelvic complete Ordering Provider: Radha Cuba D.O. PROCEDURE:? US PELVIC COMPLETE ? INDICATIONS:? FOLLOW UP CT 2 DAYS AGO-WORSENING LLQ PAIN RADIATING TO BACK. CURRENT UTI.? NEW ONSET (TODAY) URINATION WITH BLOOD. ? TECHNIQUE:? Real-time scanning was performed of the pelvic organs, with image documentation.? Additional endovaginal scanning was necessary due to incomplete visualization of the adnexal and endometrial structures by transabdominal scanning.? ? COMPARISON:? [facility], CT, CT ABDOMEN PELVIS W CON, 07/17/2022, 14:19. ? FINDINGS:? ?? Uterus:? Uterus is anteverted and normal in size at 9.6 x 6.3 x 5.6 cm. The myometrium is mildly heterogeneous.? Two anterior myometrial areas of hypoechogenicity measuring 0.7 cm each.. ? The endometrium measures 1.3 mm combined thickness.? Normal uterine vascularity. ? Ovaries:? The right ovary measures 3.2 x 2.0 x 2.4 cm, with a calculated ovarian volume of 8.0 cc. The left ovary measures 4.4 x 2.5 x 2.2 cm, with a calculated ovarian volume of 12.6 cc. The ovaries have a normal sonographic appearance.? The left ovary was only seen by transabdominal imaging given its superior location and follicular echotexture is less well seen.? There is appropriate blood flow in each ovary.? No adnexal masses are seen. ? Other:? No pathologic free abdominal or pelvic fluid.? Occurs three majus obtained of the urinary bladder are grossly normal. ? ? IMPRESSION:? ? 1. Mildly heterogeneous uterus, likely with small fibroids. ? 2. Normal ovaries bilaterally with appropriate ovarian vascular flow.? We strive to produce accurate, complete, and clear reports of imaging services. To assist us in improving patient care, this report was composed using standard report templates and voice recognition software. Therefore, it may contain abnormal punctuation, insertions and/or omissions. Occasional wrong-word or sound-alike substitutions may occur. Though we review the report and make efforts to correct it, we do recommend that the report be read carefully in proper context to recognize any text inaccuracies. ? ? Dictated by: Dedra Cantrell M.D. on 07/19/2022 at 13:20 ? ? Approved by: Dedra Cantrell M.D. on 07/19/2022 at 13:24 ? MDM Narrative Medical decision making narrative: This 46-year-old female with history of asthma and GERD, previous , previous exploratory surgery for endometriosis, who presented to the emergency department today with ongoing abdominal pain and discomfort and a brief episode of bleeding after urinating was seen in the emergency department yesterday and received a very extensive workup and evaluation including CT scan and labs. Labs are not re-evaluated today given that they were obtained in the last 24 hours and other than persistent pain patient has not had new symptoms that are concerning for infection worsening. She is on antibiotics for both BV and a UTI. She is having regular bowel movements and no vomiting or change in location of her pain since yesterday. Ultrasound was originally planned for outpatient but given patient's return visit to the emergency department with persistent pain this is obtained today during her ED stay. The ultrasound was reassuring in that her ovaries did appear to have good blood flow and a normal appearance on ultrasound. It was noted that she had small fibroids likely present in her uterus. These results were discussed with the patient and she was in understanding and comfortable with the plan for following up next Thursday. We discussed the fact that next steps will depend largely on how she is feeling over the next few days to weeks and if her symptoms resolve on their own possibly no further will be needed but that if she is worsening or not improving she can discuss with her doctors options and potential surgery for further evaluation. Return precautions provided, follow-up plan discussed, all questions answered. <Radha Cuba, DO - Last Filed: 07/20/22 08:19> Lab Data Labs: Point of Care Testing Test Results Negative Urine Dip Bedside Urine Glucose Negative Bedside Urine Bilirubin - Negative Bedside Urine Ketone - Negative Urine Specific Monarch 1.010 Bedside Urine Occult Blood ++ Bedside Urine pH 6.5 Bedside Urine Protein - Negative Bedside Urine Urobilinogen - Negative Bedside Urine Nitrite - Negative Bedside Urine Leukocytes - Negative Esterase Discharge Plan Departure Patient Disposition: Home Clinical Impression: Abdominal pain, acute, left lower quadrant, Abnormal finding on imaging Activity Restrictions/Additional Instructions: Thank you for letting us be part of your care in the emergency department today. I am sorry that your pain persisted and has not resolved completely. As we discussed the ultrasound that we obtained today did show that your ovaries look normal in appearance and that you have some small uterine fibroids. You do clearly have a calcified region on your CT scan in your left low pelvis at the area of your pain. As we discussed at this point monitoring your symptoms at home, rest, fluids, heat if that feels good and Tylenol and ibuprofen or Advil for pain as needed or recommended. You should also continue to take the antibiotics for your UTI and bacterial vaginosis. Follow-up on Thursday as planned to discuss next steps. Of course if you have new concerning symptoms do not hesitate to be re-evaluated including bright red sudden or heavy vaginal bleeding or persistent vaginal bleeding, severe or worsening abdominal pain, fevers or other symptoms of concern to you. Prescriptions: No Action fluticasone propion-salmeterol [Advair Diskus] 250-50 mcg/dose blister with device 1 inh INHALATION DAILY Qty: 14 3RF albuterol sulfate 90 mcg/actuation HFA aerosol inhaler 2 puff INHALATION Q6H PRN (Reason: shortness of breath or wheezing) Qty: 18 5RF fluticasone propionate [Flonase Allergy Relief] 50 mcg/actuation spray,suspension 1 spray NASAL DAILY cephalexin 500 mg capsule 500 mg PO TID 5 Days Qty: 15 0RF metronidazole 500 mg tablet 500 mg PO BID 7 Days Qty: 14 0RF metronidazole 0.75 % gel 1 applic topical BEDTIME Qty: 45 0RF ondansetron 4 mg tablet,disintegrating 4 mg PO Q8H PRN (Reason: nausea and vomiting) Qty: 10 0RF hydrocodone-acetaminophen 5-325 mg tablet 1 tab PO Q8H PRN (Reason: pain) Qty: 10 0RF polyethylene glycol 3350 [Miralax] 17 gram/dose powder 17 g PO DAILY PRN (Reason: constipation) Qty: 238 0RF Referrals: Abad Johnson ARNP [Primary Care Provider] - Stand Alone Forms: Patient Portal/API <Radha Cuba DO - Last Filed: 07/20/22 08:19> Cosign ED Attending Cossierraature Attestation: I was immediately available in the department for consultation. Documentation has been reviewed.
[2022-07-19] MEDS: SODIUM CHLORIDE 0.9% 1,000 ML 1000 ML IV (12:28)
[2022-07-19 15:16] VITALS: BP 116/64; PULSE 67; RESP 18; O2SAT 99
== END 2022-07-19 15:19 | disposition home or self-care (01) ==
PROVIDERS: Emergency Provider Student in an Organized Health Care Education/Training Program; PCP Nurse Practitioner Family
DX: R10.32 Left lower quadrant pain (principal); R93.89 Abnormal findings on diagnostic imaging of other specified body structures
CPT/HCPCS: 76830; 76856; 81003; 81025; 93975; 99283; 99284

== ENCOUNTER 2022-08-21 08:34 | Day surgery (SDC) | payer OTHER, SELFPAY ==
[2022-08-21 09:28] VITALS: BMI 25.4
[2022-08-21 09:51] VITALS: BP 105/70; PULSE 75; RESP 16; TEMP 37.1; O2SAT 99
[2022-08-21] MEDS: LACTATED RINGERS 1,000 ML 42 ML IV (09:58)
--- NOTE | 2022-08-21 10:10 | PM.HP.1 ---
History of Present Illness History of Present Illness Date Patient Seen: 08/21/22 Time Patient Seen: 10:10 Chief complaint: DX Colonoscopy Narrative: Gauri is a 46 year old woman who is being evaluated by Dr. De La Rosa for left lower quadrant pain and possible ovarian cyst. Pain has improved in the past few weeks. Normal bowel function. No fevers. She has never had a colonoscopy before. She has no known family history of colon cancer. Patient History Medical History Allergies (~1979) Encounter for wellness examination History of COVID-19 (01/2021) Surgical History H/O section Family & Social History Family History Father Coronary artery disease involving coronary bypass graft with angina pectoris with documented spasm Grandfather Heart disease Grandmother Heart disease Social History: household members family Tobacco & Substance use: Smoking Status Never smoker alcohol intake current alcohol intake frequency holiday/special occasion Substance Use Type does not use Meds Home Medications and Allergies Home Medications Medication Instructions Recorded Confirmed Type fluticasone propionate 50 1 spray intranasal PRN PRN Allergy 11/16/19 08/21/22 History mcg/actuation nasal Symptoms spray,suspension (Flonase Allergy Relief) Advair Diskus 250 mcg-50 mcg/dose 1 inh inhalation DAILY #14 ea 07/23/22 08/21/22 Rx powder for inhalation (fluticasone propion-salmeterol) albuterol sulfate 90 mcg/actuation 2 puff inhalation Q6H PRN 07/23/22 08/21/22 Rx aerosol inhaler shortness of breath or wheezing #18 grams Allergies Allergy/AdvReac Type Severity Reaction Status Date / Time No Known Drug Allergies Allergy Verified 08/21/22 09:24 Exam Vital Signs (past 8 hours): - 08/21/22 09:51 Temperature 98.7 F Pulse Rate 75 Respiratory Rate 16 Blood Pressure 105/70 Pulse Oximetry 99 Oxygen Delivery Method Room Air Oxygen Delivery Method Room Air Const General: healthy appearing Resp Effort & Inspection: normal respiratory effort Assessment & Plan Assessment and plan (1) LLQ abdominal pain: Status: Acute Plan We reviewed the risks and benefits of colonoscopy and she would like to proceed. Time Spent With Patient Critical Care time: I spent a total of [] minutes of critical care time on this patient's care today; this time is exclusive of procedural time.
--- NOTE | 2022-08-21 11:11 | PM.OP.COLON ---
Operative Date/Time/Diagnoses Date of procedure: 08/21/22 Time of procedure: 11:11 Pre-op diagnosis: Left lower quadrant abdominal pain Post-op diagnosis: same Procedure & Clinicians Study performed: Colonoscopy Same procedure as scheduled: Yes Surgeon: Ramon Akbar Procedure Notes Procedure in detail: Surgeon: Ramon Akbar MD Anesthesia: Juan Carlos Armenta sophia [employer] MACHINE OPERATOR Procedure: The patient was brought to the endoscopy suite, placed in left lateral decubitus position. The patient was connected to monitoring devices. A time-out was performed. Sedation was administered. Once the patient was adequately sedated, a digital rectal exam was performed and was normal. The scope was then inserted and advanced to the cecum with difficulty due to the length and tortuosity of the colon. Advancing the scope required repositioning of the patient several times, the scope stiffener and abdominal pressure from 2 assistants. Eventually we are able to get to the cecum and the appendiceal orifice was identified and photographed. The scope was then slowly withdrawn over greater than 6 minutes. The mucosa was thoroughly inspected. No mucosal abnormalities were seen. The scope was retroflexed in the rectum. No abnormalities were seen there. The scope was straightened and removed. The patient was awakened and brought to recovery. Scope withdrawal time: 8 minutes Sedation time: 43 minutes EBL: 5 mL Findings: Extremely long and tortuous but otherwise normal colon Post-procedure Disposition: PACU
[2022-08-21 11:15] VITALS: BP 116/67; PULSE 67; RESP 15; TEMP 36.1; O2SAT 100
[2022-08-21 11:20] VITALS: BP 131/93; PULSE 68; RESP 16; O2SAT 100
[2022-08-21 11:25] VITALS: BP 126/71; PULSE 67; RESP 16; TEMP 36.9; O2SAT 100
[2022-08-21 11:27] VITALS: BP 133/68; PULSE 61; RESP 17; TEMP 37; O2SAT 100
== END 2022-08-21 11:49 | disposition home or self-care (01) ==
PROVIDERS: PCP Family Medicine; Referring Provider Surgery; Visit Provider Surgery
PROC: 0DJD8ZZ Inspection of Lower Intestinal Tract, Via Natural or Artificial Opening Endoscopic (ICD-10-PCS; CPT 45378; principal; 2022-08-21 09:45)
DX: R10.32 Left lower quadrant pain (principal)
CPT/HCPCS: 45378; J2704